=== PATIENT | female | born 1980 | race Caucasian/White ===

== ENCOUNTER 2020-03-27 11:32 | Emergency (ER) | payer MEDICAID, SELFPAY ==
[~2020-03-27] VITALS: Ht 157.5 cm; Wt 49.9 kg
[2020-03-27 11:42] VITALS: BP 129/69
[2020-03-27 12:34] LABS: BILIRUBIN,URINE NEGATIVE (NEGATIVE); BLOOD, URINE TRACE-I (NEGATIVE); COLOR,URINE YELLOW (YELLOW); LEUKOCYTE ESTERASE ,URINE 2+ (NEGATIVE); NITRITE, URINE NEGATIVE (NEGATIVE); UGLUCOSE NEGATIVE (NEGATIVE)
[2020-03-27 12:54] LABS: RBC,URINE 0-5 /HPF (0-5)
[2020-03-27 12:55] LABS: APPEARANCE,URINE SLIGHTLY HAZY (CLEAR)
[2020-03-27 13:02] VITALS: BP 129/69
--- NOTE | 2020-03-27 13:02 | NUR ---
Patient discharged with v/s stable. Written and verbal after care instructions given and explained. Patient alert, oriented and verbalized understanding of instructions. Ambulatory with steady gait. All questions addressed prior to discharge. ID band removed. Patient advised to follow up with PMD. Rx of Keflex 500mg, Phenazopyridine given. Patient educated on indication of medication including possible reaction and side effects. Opportunity to ask questions provided and answered.
== END 2020-03-27 13:02 | disposition home or self-care (01) ==
LOC: MED 11:32
DX: N39.0 Urinary tract infection, site not specified (principal); Z98.890 Other specified postprocedural states
CPT/HCPCS: 81001; 81025; 87086; 99283